=== PATIENT | female | born 2000 | race Caucasian/White ===

== ENCOUNTER 2022-02-01 01:17 | Emergency (ER) | payer OTHER ==
[2022-02-01] MEDS ORDERED: Diazepam 5 MG TAB ONE (02:16)
[2022-02-01] MEDS ORDERED: Ondansetron ODT 8 MG TAB ONE (02:16)
== END 2022-02-01 02:31 | disposition home or self-care (01) ==
LOC: ERS 01:17
DX: R51.9 Headache, unspecified (principal); R11.0 Nausea; R00.2 Palpitations; T43.225A Adverse effect of selective serotonin reuptake inhibitors, initial encounter; T43.625A Adverse effect of amphetamines, initial encounter; F17.210 Nicotine dependence, cigarettes, uncomplicated
CPT/HCPCS: 93005; Q0162